=== PATIENT | female | born 1980 | race African-American/Black ===

== ENCOUNTER 2025-08-16 21:29 | Emergency (ER) | payer MEDICAID ==
[~2025-08-16] VITALS: Ht 175.3 cm; Wt 109.4 kg
--- NOTE | 2025-08-16 21:46 | ECG ---
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
--- NOTE | 2025-08-16 21:51 | ED.PDOC ---
SOB-HPI HPI Comments HPI: VITALS ON SCENE TEMPERATURE: 97.9 RESPIRATORY RATE: 25 SPO2: 98% ROOM AIR HEART RATE:93 BLOOD PRESSURE: 138/79 PAST MEDICAL HISTORY: BIPOLAR DISORDER, ASTHMA, BRONCHITIS, SCHIZOPHRENIA PAST SURGICAL HISTORY: DENIES ANY MEDICATIONS: SEROQUEL, PROZAC, DOXEPIN, ALBUTEROL SOCIAL HISTORY: DENIES ANY HPI: Poor Historian. 45-year-old female brought in by ambulance from home for acute respiratory distress. Patient states that she had an argument with her daughter and she says that she has a tendency if developing respiratory difficulty and when she gets in an argument. Patient states by the time she arrived to the ED her symptoms have essentially resolved. Patient denies any other symptoms. Denies any drugs or alcohol. REVIEW OF SYSTEMS: CONSTITUTIONAL: Denies acute: fever, diaphoresis, chills, generalized weakness. HEAD: Denies acute: headache, photophobia Eyes: Denies acute: Double vision, vision loss, eye pain, eye discharge. EARS: Denies acute: tinnitus, hearing loss, ear discharge, ear pain, THROAT: Denies acute: sore throat, swelling, difficulty swallowing , pain with swallowing, change in voice. NECK: Denies acute: neck pain, neck swelling, stiff neck. HEART: Denies acute : chest pain, palpitations, LUNGS: Denies acute: cough, hemoptysis ABDOMEN: Denies acute: abdominal pain, Nausea, Vomiting, diarrhea, melena , hematemesis, hematochezia SKIN: Denies acute: rash, redness, lesions, itchiness. EXTREMITIES: Denies acute: calf pain, numbness, tingling, weakness, denies pain in extremity. Denies acute: Low back pain. Neuro: Denies acute: focal neurological deficit, motor or sensory focal neurological deficit, tremors, seizure like activity, confusion, dizziness, change in mental status, loss of bowel or bladder function, cauda equina like symptoms. : Denies acute: dysuria, hematuria, flank pain, increase in urinary frequency. PSYCH: Denies acute: hallucination, suicidal ideation, homicidal ideation. FEMALE: Denies acute: abnormal vaginal bleeding, foul odor, unusual discharge. PHYSICAL EXAM: General: ----no----acute distress, awake and alert. Head: normocephalic, atraumatic. No raccoon's eyes, no jones sign. Neck: supple, trachea is midline, no swelling. Throat: Normal phonation. Eyes:, no erythema, no purulent discharge, no proptosis, no icterus. Heart: regular rate, regular rhythm, no significant murmur appreciated. Lungs: no apparent respiratory distress, Able to speak in full sentences. Minimal wheezing, no rhonchi, no crackles. No stridors Abdomen: non tender to palpation, non distended, soft, no guarding, no rebound, + bowel sounds. Obese Neuro: Awake, Alert, oriented to name, self, situation, follows commands GCS=15. Speech is normal. Skin: no petechia, no purpura, no cyanosis, non-pale, not jaundice. Lower extremities: --no - Pitting edema no deformity, no focal swelling, no calf TTP. Makes eye contact. moves all four extremities. Face: no apparent facial droop. . No nuchal rigidity, Kernig's sign, Brudzinski's sign, no meningeal signs. ED COURSE: DISCLAIMER: This medical document was created using an electronic medical record system with voice recognition software and computerized dictation system. Although this document has been carefully reviewed, there might still be some phonetic and typographical errors. Occasional wrong-word or "sound-alike" substitutions may have occurred due to the inherent limitations of voice recognition software. These areas are purely typographical due to imperfections of the software programs and do not reflect any compromise in the patient's medical care. Please read the chart carefully and recognize, using context, where these substitutions have occurred. Chief Complaint: Shortness of Breath Time Seen by MD: 21:45 Primary Care Provider: TROY Reviewed notes: Nurses Notes, Medications, Allergies Information Source: Patient Mode of Arrival: EMS Was a procedure done? Was a procedure done?: No X-Ray, Labs, Meds, VS Vital Signs Date Time Temp Pulse Resp B/P (MAP) Pulse Ox O2 Delivery O2 Flow Rate FiO2 08/16/25 22:29 20 99 Room Air* 0 21 08/16/25 22:09 93 12 97 Room Air* 0 21 08/16/25 22:00 97.9 93 12 139/73 (95) 97 97.9 08/16/25 21:39 Room Air* 0 21 08/16/25 21:38 91 08/16/25 21:35 97.9 93 24 138/79 98 97.9 Lab Test 08/16/25 22:45 08/16/25 21:50 Range/Units Troponin I High Sensitivity Pending 8 </=34 ng/L White Blood Count 7.1 4.4-10.8 10^3/uL Red Blood Count 3.43 L 4.0-5.20 10^6/uL Hemoglobin 10.6 L 12.2-16.2 g/dL Hematocrit 32.7 L 36.0-46.0 % Mean Corpuscular Volume 95.2 80.0-100.0 fL Mean Corpuscular Hemoglobin 30.7 28.0-32.0 pg Mean Corpuscular Hemoglobin Concent 32.3 32.0-36.0 g/dL Red Cell Distribution Width 13.4 11.8-14.3 % Platelet Count 343 140-450 10^3/uL Mean Platelet Volume 8.9 6.9-10.8 fL Neutrophils (%) (Auto) 55.9 37.0-80.0 % Lymphocytes (%) (Auto) 21.8 10.0-50.0 % Monocytes (%) (Auto) 12.2 H 0.0-12.0 % Eosinophils (%) (Auto) 9.4 H 0.0-7.0 % Basophils (%) (Auto) 0.7 0.0-2.0 % Neutrophils # (Auto) 4.0 1.6-8.6 10 ^3/uL Lymphocytes # (Auto) 1.5 0.4-5.4 10 ^3/uL Monocytes # (Auto) 0.9 0-1.3 10 ^3/uL Eosinophils # (Auto) 0.7 0-0.8 10 ^3/uL Basophils # (Auto) 0.1 0-0.2 10 ^3/uL Nucleated Red Blood Cells 0.0 % Sodium Level 142 136-145 mmol/L Potassium Level 3.8 3.5-5.1 mmol/L Chloride Level 108 H 98-107 mmol/L Carbon Dioxide Level 24 20-31 mmol/L Anion Gap 10 5-15 Blood Urea Nitrogen 9 9-23 mg/dL Creatinine 0.83 0.550-1.02 mg/dL Glomerular Filtration Rate Calc 87 >90 mL/min BUN/Creatinine Ratio 10.8 10.0-20.0 Serum Glucose 92 74-106 mg/dL Calcium Level 8.3 L 8.7-10.4 mg/dL B-Type Natriuretic Peptide 56.49 0-100 pg/mL Current Medications Medications (Trade) Dose Ordered Sig/Tony Route Start Time Stop Time Status Last Admin Albuterol (Ventolin Medneb) 2.5 mg ONCE ONCE NEB 08/16/25 22:30 08/16/25 22:31 DC 08/16/25 22:29 Ipratropium [place] (Atrovent Medneb) 1 mg ONCE ONCE NEB 08/16/25 22:30 08/16/25 22:31 DC 08/16/25 22:29 Prednisone 40 mg ONCE ONCE PO 08/16/25 22:30 08/16/25 22:31 DC 08/16/25 22:52 Time of 1ST Reevaluation: 22:15 Reevaluation 1ST: Unchanged Patient Education/Counseling: Diagnosis, Treatment, Prognosis Family Education/Counseling: No Family Present SEPSIS Sepsis Screen Date sepsis recognized/suspect: Aug 16, 2025 Time Sepsis recognized/suspect: 2126 Recent Procedure: No On Antibiotic Therapy: No Respiratory Rate >20: No Heart Rate >90: No Temp<36 C (96.8 F) or >38.3 C: No SBP <90 or MAP <65 mmHG: No New Acute Mental Status Change: No Is the patient on CPAP, BIPAP,: No Physician Orders Commercial Property Administrator (08/16/25 ) Chest Portable (08/16/25 21:44) Troponin-I Hs (08/16/25 22:44) Troponin-I Hs (08/17/25 00:44) Vital Signs Date Time Temp Pulse Resp B/P (MAP) Pulse Ox O2 Delivery O2 Flow Rate FiO2 08/16/25 22:29 20 99 Room Air* 0 08/16/25 22:09 93 12 97 Room Air* 0 08/16/25 22:00 97.9 93 12 139/73 (95) 97 97.9 08/16/25 21:39 Room Air* 0 21 08/16/25 21:38 91 12/16/25 21:35 97.9 93 24 138/79 98 97.9 Laboratory Tests Test 08/16/25 21:50 White Blood Count 7.1 10^3/uL (4.4-10.8) Medications Medications Dose Ordered Sig/Tony Route Start Time Stop Time Status Last Admin Dose Admin Albuterol 2.5 mg ONCE ONCE NEB 08/16/25 22:30 08/16/25 22:31 DC 08/16/25 22:29 Ipratropium [place] 1 mg ONCE ONCE NEB 08/16/25 22:30 08/16/25 22:31 DC 08/16/25 22:29 Prednisone 40 mg ONCE ONCE PO 08/16/25 22:30 08/16/25 22:31 DC 08/16/25 22:52 Departure 1 Departure Time of Disposition: 23:14 Impression: Primary Impression: Acute asthma exacerbation Additional Impression: Anemia Disposition: HOME / SELF CARE / HOMELESS Condition: Stable Additional Instructions: Additional instructions: Please read all instructions provided in this packet carefully. You MUST follow-up with your primary care/family doctor in 1 to 2 days. If you are unable to see your primary care/family doctor, please return to our emergency room for re-assessment and re-evaluation in 1 to 2 days. Return to the emergency room here in our facility or to the nearest ER [facility] if your symptoms change or worsen. CONSULTATIONS: you MUST Follow-up for consultation as soon as possible with: -pulmonology in 1-2 days. Please call for appointment. You MUST call the consultants office yourself to make an appointment. You may need to arrange that through your insurance and/or your primary/family doctor. If you are unable to see the corporate consultant in 1 to 2 days, you must return to our emergency room (or any other ER of your choice) for re-assessment and re- evaluation. Adequate fluid hydration. Although you have been discharged from the Emergency Department, this does not mean that you have a "clean bill of health". No definitive diagnosis for your symptoms has been made today. It is possible that you are in the process of developing a serious illness. This is why you must return to the ED without fail if any new or worsening symptoms develop. YOU ARE ANEMIC. TAKE DAILY IRON SUPPLEMENTS. e-Prescriptions Prednisone (Prednisone) 20 Mg Tab 40 MG PO DAILY for 5 Days, #10 TAB Prov: STACY TREVINO DO 08/16/25 Discharged With: Self Critical Care Note Critical Care Time?: No I personally scribed for STACY TREVINO DO ([email or web address]) on 08/16/25 at 21:51. Electronically submitted by Mumtaz Omer ([email or web address]). STACY TREVINO DO Aug 16, 2025 21:51
[2025-08-16 22:00] VITALS: TEMP 97.9
[2025-08-16 22:01] LABS: Hematocrit 32.7 % (36.0-46.0); Hemoglobin 10.6 g/dL (12.2-16.2); Mean Corpuscular Hemoglobin 30.7 pg (28.0-32.0); Mean Corpuscular Volume 95.2 fL (80.0-100.0); Nucleated Red Blood Cells % 0.0 %
[2025-08-16 22:09] VITALS: PULSE 93; RESP 12; O2SAT 97
[2025-08-16 22:11] LABS: Potassium 3.8 mmol/L (3.5-5.1); Sodium 142 mmol/L (136-145)
[2025-08-16 22:12] LABS: Anion Gap 10 (5-15); Carbon Dioxide 24 mmol/L (20-31)
[2025-08-16 22:17] LABS: BUN/Creatinine Ratio 10.8 (10.0-20.0); Glucose 92 mg/dL (74-106)
[2025-08-16 22:20] LABS: Blood Urea Nitrogen 9 mg/dL (9-23); Calcium 8.3 mg/dL (8.7-10.4); Chloride 108 mmol/L (98-107)
[2025-08-16] MEDS: IPRATROPIUM BROM 0.5 MG/2.5ML INH SOL NEB ONE (22:29)
[2025-08-16] MEDS: ALBUTEROL SULF 2.5 MG/0.5ML(0.5%) NEB SOLN NEB ONE (22:29)
--- NOTE | 2025-08-16 22:44 | DVH ---
CHEST RADIOGRAPH INDICATION: sob TECHNIQUE: Single frontal view of the chest was obtained COMPARISON: None FINDINGS: Lungs and pleural spaces are clear. Cardiac silhouette and [place] are within normal limits. Bones and soft tissues demonstrate no significant abnormality. IMPRESSION: No acute disease.
[2025-08-16] MEDS: predniSONE 20 MG TAB PO ONE (22:52)
[2025-08-16] MEDS ORDERED: PRED20TA2 PO (23:15)
[2025-08-16 23:51] VITALS: BP 146/72; PULSE 91; RESP 18; O2SAT 98
== END 2025-08-16 23:51 | disposition home or self-care (01) ==
LOC: ER 21:29 → EDBD 21:29 → ER 23:51
DX: J45.901 Unspecified asthma with (acute) exacerbation (principal); D64.9 Anemia, unspecified; F31.9 Bipolar disorder, unspecified; F20.9 Schizophrenia, unspecified
CPT/HCPCS: 36415; 71045; 80048; 83880; 84484; 85025; 93005; 94640; 99285; J7512